=== PATIENT | male | born 1940 | race Caucasian/White ===

== ENCOUNTER → 2017-01-09 | Outpatient (REF) | payer MEDICARE, OTHER ==
[~2017-01-09] MED LIST: /DEXA4TA PO; /HCTZ25TA PO; ACET50TA PO; CLIN300C PO; IBUP80TA PO; SIMV; SIMV5TAB4 PO; TIOTROPIUM INH; hydrochlorothiazide OR; simvastatin OR; spiriva INH
[2017-01-09 18:30] LABS: INR 1.1
== END ==
LOC: M LAB REF 16:44
PROVIDERS: ATTEND Internal Medicine
DX: Z01.818 Encounter for other preprocedural examination (principal)

== ENCOUNTER → 2017-01-20 | Outpatient (CLI) | payer OTHER, BC, MEDICAID ==
--- NOTE | 2017-01-22 17:26 | SLEEPCENT ---
DATE OF PROCEDURE: 01/20/2017 ORDERED BY: Ladi Dixon Nocturnal polysomnography was performed due to concern for the obstructive sleep apnea syndrome in this patient with a history of excessive somnolence and nonrestorative sleep. 6 hours and 47 minutes of data were reviewed. There was 266 minutes of sleep identified. Sleep latency was somewhat prolonged at 45 minutes. Rapid eye movement (REM) latency was normal at 70 minutes. Sleep architecture showed fragmentation but there were three REM periods appreciated. The overall sleep efficiency was 66.1%. Patient's EKG showed a sinus rhythm with an average heart rate of 60 beats per minute. EEG showed reasonably normal wave forms for wake and sleep. No focal events were identified. There were 119 respiratory events identified of 10 seconds in duration or greater for an apnea-hypopnea index of 26.8. The events were primarily obstructive, not exclusive to sleep stage or body posture. Arousals from respiratory events occurred 13.3 times per hour. Oxygen desaturations were seen in the 80's. Some limb activity was noted as well, three trains of 30 events were seen. Limb movement arousal index was 9.7. IMPRESSION: 1. Moderate obstructive sleep apnea syndrome (G47.33). Apnea-hypopnea index 26.8. 2. Periodic limb movement disorder (G47.61). Limb movement arousal index 9.7. RECOMMENDATIONS: Patient should be encouraged to return to the sleep disorder center for pressure therapy. In the interim, alcohol and sedative avoidance should be practiced, and caution exercised during the operation of motor vehicles. Pending response to pressure therapy interventions to reduce the frequency of arousal from limb activity may also help the quality of sleep.
== END ==
LOC: M SLEEP 20:00
PROVIDERS: ATTEND Nurse Practitioner Adult Health
DX: G47.30 Sleep apnea, unspecified (principal)

== ENCOUNTER → 2017-01-27 | Outpatient (CLI) | payer OTHER, MEDICARE, MEDICAID ==
--- NOTE | 2017-01-28 10:00 | SLEEPCENT ---
DATE OF PROCEDURE: 01/27/2017 REQUESTING PROVIDER: Ladi Dixon NP INTERPRETATION: Nocturnal polysomnography was performed for the titration of pressure therapy in this patient with obstructive sleep apnea syndrome, apnea-hypopnea index of 26. For testing, the patient was fit with a ResMed Air Touch F20 full face mask of medium size, 4 cm of water pressure were applied to the circuit and the lights were extinguished. 7 hours and 12 minutes of data were reviewed. There were 271 minutes of sleep identified. Sleep latency was prolonged at 72 minutes. Rapid eye movement (REM) latency was short at 57 minutes. Sleep architecture improved with optimal pressure therapy. There was a period of wake after 3:30 a.m., resulting in reduced sleep efficiency of 63%. REM time, however, was preserved. The patient's electrocardiogram (EKG) showed a sinus rhythm with an average heart rate of 56 beats per minute. Electroencephalogram (EEG) showed normal waveforms for awake and sleep. Persistence of respiratory events prompted an increase in continuous positive airway pressure (CPAP) pressure. Occurrence of snoring prompted further increases. Best sleep was seen on CPAP pressure of +9. Some minor central events were seen at this pressure, however, they were not associated with significant oxygen desaturation. Limb activity seen on the patient's diagnostic study persisted, albeit less so after optimal pressure therapy had been applied. The limb movement arousal index was 8.2. IMPRESSION: 1. Obstructive sleep apnea syndrome (G47.33). 2. Mild periodic limb movement disorder (G47.61). RECOMMENDATIONS: Nightly use of pressure therapy at 9 cm of water should be sufficient to address the patient's respiratory events. If sleep symptoms persist, interventions to reduce the frequency of arousals from limb activity may also be helpful.
== END ==
LOC: M SLEEP 19:57
PROVIDERS: ATTEND Nurse Practitioner Adult Health
DX: G47.33 Obstructive sleep apnea (adult) (pediatric) (principal)

== ENCOUNTER → 2017-11-28 | Outpatient (REF) | payer OTHER, MEDICARE, MEDICAID ==
[2017-11-28 18:31] LABS: VITAMIN B12 LEVEL 940 PG/ML (247-911)
== END ==
LOC: M LAB REF 16:49
DX: R20.8 Other disturbances of skin sensation (principal); Z72.51 High risk heterosexual behavior

== ENCOUNTER → 2021-01-19 | Outpatient (REF) | payer MEDICARE, MEDICAID ==
[~2021-01-19] MED LIST changes: -/DEXA4TA PO; -/HCTZ25TA PO; -ACET50TA PO; +DEXA1TAB8 PO; +HYDR-3644 PO; +MAPA500T17 PO
[2021-01-19 17:47] LABS: BACTERIA, URINE AUTO NEGATIVE (NEGATIVE); RBC, URINE AUTO 3 /HPF (0-3); SQUAMOUS EPITHELIAL CELL UR AU 1 /HPF (0-6); WBC, URINE AUTO 0 /HPF (0-3)
== END ==
LOC: M LAB REF 16:20
PROVIDERS: ATTEND Nurse Practitioner Adult Health
DX: R31.9 Hematuria, unspecified (principal)

== ENCOUNTER → 2021-04-23 | Outpatient (REF) | payer MEDICARE, MEDICAID ==
[2021-04-23 13:38] LABS: APPEARANCE, URINE CLEAR (CLEAR); BACTERIA, URINE AUTO NEGATIVE (NEGATIVE); BILIRUBIN, URINE AUTO NEGATIVE (NEGATIVE); BLOOD, URINE BLOOD 2+ (NEGATIVE); COLOR, URINE YELLOW (YELLOW); GLUCOSE, URINE (UA) AUTO NEGATIVE (NEGATIVE); KETONE, URINE AUTO NEGATIVE (NEGATIVE); LEUKOCYTE ESTERASE, URINE AUTO NEGATIVE (NEGATIVE); MUCUS, URINE SMALL (NEGATIVE); NITRITE, URINE AUTO NEGATIVE (NEGATIVE); PROTEIN, URINE AUTO NEGATIVE (NEGATIVE); RBC, URINE AUTO 10 /HPF (0-3); SPECIFIC GRAVITY URINE AUTO 1.012 (1.002-1.035); SQUAMOUS EPITHELIAL CELL UR AU 0 /HPF (0-6); UROBILINOGEN, URINE AUTO 0.2 mg/dL (0.0-2.0); WBC, URINE AUTO 0 /HPF (0-3)
== END ==
LOC: M SMT 13:10
PROVIDERS: ATTEND Nurse Practitioner Women's Health
DX: R31.21 Asymptomatic microscopic hematuria (principal)
CPT/HCPCS: 81001; 87086; G0463

== ENCOUNTER → 2021-07-26 | Outpatient (REF) | payer MEDICARE, MEDICAID ==
[2021-07-26 17:22] LABS: APPEARANCE, URINE CLEAR (CLEAR); BACTERIA, URINE AUTO NEGATIVE (NEGATIVE); BILIRUBIN, URINE AUTO NEGATIVE (NEGATIVE); BLOOD, URINE BLOOD 2+ (NEGATIVE); COLOR, URINE YELLOW (YELLOW); GLUCOSE, URINE (UA) AUTO NEGATIVE (NEGATIVE); KETONE, URINE AUTO NEGATIVE (NEGATIVE); LEUKOCYTE ESTERASE, URINE AUTO NEGATIVE (NEGATIVE); NITRITE, URINE AUTO NEGATIVE (NEGATIVE); PROTEIN, URINE AUTO NEGATIVE (NEGATIVE); RBC, URINE AUTO 12 /HPF (0-3); SPECIFIC GRAVITY URINE AUTO 1.012 (1.002-1.035); SQUAMOUS EPITHELIAL CELL UR AU 1 /HPF (0-6); UROBILINOGEN, URINE AUTO 0.2 mg/dL (0.0-2.0); WBC, URINE AUTO 0 /HPF (0-3)
== END ==
LOC: M SMT 16:41
PROVIDERS: ATTEND Physician Assistant
DX: R31.21 Asymptomatic microscopic hematuria (principal)

== ENCOUNTER 2021-10-16 09:34 | Observation (INO) | payer MEDICARE, MEDICAID ==
[~2021-10-16] VITALS: Ht 180.3 cm; Wt 127.4 kg
[2021-10-16] VITALS (8 sets, daily range): BP systolic 159–162; BP diastolic 80–92; O2SAT 92–94
[2021-10-16] MEDS ORDERED: dexameTHASONE 4 MG/ML 1ML VIAL (J1100 PER 1MG) IV ONE (09:55)
[2021-10-16] MEDS ORDERED: LOSA50TA28 PO (09:57)
[2021-10-16] MEDS ORDERED: ROSU10TA6 PO (09:57)
[2021-10-16] MEDS ORDERED: BUPR150T12 PO (09:57)
[2021-10-16] MEDS ORDERED: PANT40TA29 PO (09:57)
[2021-10-16] MEDS ORDERED: HYDR-3490 PO (09:57)
[2021-10-16] MEDS: COMBIVENT RESPIMAT 100-20MCG INHALER 4GM INH SCH ×3 (10:10→10:53)
[2021-10-16 10:23] LABS: BASO % 0.1 % (0.0-1.0); EOS % 0.3 % (0.0-3.0); HEMATOCRIT 47.9 % (42.0-52.0); HEMOGLOBIN 15.8 g/dl (13.5-17.5); LYMPH # 1.1 10^3/uL (1.5-5.0); MEAN CORPUSCULAR HEMOGLOBIN 32.2 pg (27.0-33.0); MEAN CORPUSCULAR VOLUME 97.8 fl (80.0-96.0); MONO # 0.7 10^3/uL (0.0-0.8); MONO % 8.9 % (2.0-8.0); NEUTROPHILS # 5.7 10^3/uL (1.5-8.5); NEUTROPHILS % 75.3 % (36.0-66.0); PLATELET COUNT, AUTOMATED 134 10^3/uL (150-450); WHITE BLOOD COUNT 7.6 10^3/uL (4.0-10.0)
[2021-10-16 10:28] LABS: ABG BASE EXCESS 1.5 (-2.0-2.0); ABG HCO3 26.4 MEQ/L (22.0-26.0); ABG O2 SATURATION 94.2 % (95.0-99.0); ABG PARTIAL PRESSURE CO2 42.7 mmHg (35.0-45.0); ABG PARTIAL PRESSURE O2 68.8 mmHg (75.0-100.0); ABG STANDARD HCO3 25.7 MEQ/L (22.0-26.0); ABG TOTAL CO2 27.7 MEQ/L (23.0-31.0); ABG pH (ARTERIAL) 7.409 UNITS (7.350-7.450)
[2021-10-16 10:39] LABS: PARTIAL THROMBOPLASTIN TIME 31.5 SECONDS (25.9-37.0); PROTHROMBIN TIME 13.6 SECONDS (12.7-14.5)
[2021-10-16] MEDS ORDERED: AZITHROMYCIN INJ 500 MG, VIAL MATE ADAPTER 1 EACH in NS 250 ML IV ONE (12:20)
[2021-10-16] MEDS ORDERED: cefTRIAXone SOD 1 GM in D5W MINI-BAG PLUS 50 ML IV ONE (12:20)
[2021-10-16 12:40] LABS: ALBUMIN 3.3 GM/DL (3.2-5.2); ALT/SGPT 28 U/L (12-78); BILIRUBIN,DIRECT 0.2 MG/DL (0.0-0.2); BILIRUBIN,TOTAL 0.5 MG/DL (0.2-1.0); BLOOD UREA NITROGEN 16 MG/DL (7-18); C REACTIVE PROTEIN QUANTITATIV 0.62 MG/DL (0.00-0.30); CALCIUM LEVEL 7.7 MG/DL (8.8-10.2); CARBON DIOXIDE LEVEL 27 MEQ/L (21-32); CHLORIDE LEVEL 106 MEQ/L (98-107); CREATININE FOR GFR 1.09 MG/DL (0.70-1.30); FERRITIN 390 NG/ML (26-388); GLOMERULAR FILTRATION RATE > 60.0 (>35); GLUCOSE, FASTING 110 MG/DL (70-100); LDH LACTATE DEHYDROGENASE 236 U/L (87-241); LIPASE 174 U/L (73-393); MAGNESIUM LEVEL 1.8 MG/DL (1.8-2.4); NT-PRO BNP 99 PG/ML (<450); POTASSIUM SERUM 4.3 MEQ/L (3.5-5.1); SODIUM LEVEL 135 MEQ/L (136-145)
[2021-10-16] MEDS ORDERED: VITMTA PO (13:51)
[2021-10-16] MEDS ORDERED: SPIR1CAP INH (13:51)
[2021-10-16] MEDS ORDERED: ASPI81TA26 PO (13:51)
[2021-10-16] MEDS ORDERED: VENTAER INH (13:51)
[2021-10-16] MEDS ORDERED: FLUT1BLS2 INH (13:51)
[2021-10-16] MEDS ORDERED: ASPI-161 PO (13:51)
[2021-10-16] MEDS ORDERED: HOME MED LIST COMPLETE! XX SCH (13:55)
[2021-10-16] MEDS ORDERED: ACETAMINOPHEN TAB 650MG DOSE (2X325MG) PO PRN (14:00)
[2021-10-16] MEDS ORDERED: REMDESIVIR 200 MG in NS 250 ML IV ONE (18:00)
[2021-10-16] MEDS ORDERED: SODIUM CHLORIDE 0.9% INJ 10 ML SYR IV ONE (20:00)
[2021-10-16] MEDS ORDERED: COMBIVENT RESPIMAT 100-20MCG INHALER 4GM INH PRN (21:50)
[2021-10-17] VITALS (16 sets, daily range): BP systolic 120–142; BP diastolic 60–75; O2SAT 92–97
[2021-10-17] MEDS ORDERED: CHLORASEPTIC SPRAY MT PRN (05:30)
[2021-10-17] MEDS ORDERED: CEPACOL LOZENGE PO PRN (05:30)
[2021-10-17 06:13] LABS: HEMATOCRIT 44.1 % (42.0-52.0); HEMOGLOBIN 14.6 g/dl (13.5-17.5); MEAN CORPUSCULAR HEMOGLOBIN 32.2 pg (27.0-33.0); MEAN CORPUSCULAR HGB CONC 33.1 g/dl (32.0-36.5); MEAN CORPUSCULAR VOLUME 97.1 fl (80.0-96.0); PLATELET COUNT, AUTOMATED 120 10^3/uL (150-450); RED BLOOD COUNT 4.54 10^6/uL (4.30-6.10); WHITE BLOOD COUNT 5.2 10^3/uL (4.0-10.0)
[2021-10-17 06:43] LABS: ALT/SGPT 26 U/L (12-78); BILIRUBIN,DIRECT 0.1 MG/DL (0.0-0.2); BILIRUBIN,TOTAL 0.3 MG/DL (0.2-1.0); BLOOD UREA NITROGEN 15 MG/DL (7-18); CALCIUM LEVEL 8.5 MG/DL (8.8-10.2); CARBON DIOXIDE LEVEL 28 MEQ/L (21-32); CHLORIDE LEVEL 109 MEQ/L (98-107); GLOMERULAR FILTRATION RATE > 60.0 (>35); GLUCOSE, FASTING 104 MG/DL (70-100); POTASSIUM SERUM 4.1 MEQ/L (3.5-5.1); SODIUM LEVEL 140 MEQ/L (136-145); TOTAL PROTEIN 7.1 GM/DL (6.4-8.2)
[2021-10-17] MEDS: TIOTROPIUM INHALER/CAPSULE (SPIRIVA) INH SCH (07:49)
[2021-10-17] MEDS: ALBUTEROL 90 MCG/ACT 8GM HFA INHALER INH SCH (07:49)
[2021-10-17] MEDS: PANTOPRAZOLE 40MG TAB (PROTONIX) PO SCH (09:32)
[2021-10-17] MEDS: ASPIRIN 81MG ENTERIC TABLET PO SCH (09:32)
[2021-10-17] MEDS: dexameTHASONE 4 MG/ML 1ML VIAL (J1100 PER 1MG) PO SCH (09:33)
[2021-10-17] MEDS: ROSUVASTATIN 10 MG TAB (CRESTOR) PO SCH (09:33)
[2021-10-17] MEDS: LOSARTAN 50MG TABLET PO SCH (09:33)
[2021-10-17] MEDS: MULTIVITAMINS/MINERALS THERAP 1 TAB PO SCH (09:34)
[2021-10-17] MEDS: buPROPion **XL** TABLET 150MG (WELLBUTRIN XL) PO SCH (09:34)
[2021-10-17] MEDS: ENOXAPARIN 40MG/0.4ML SYRINGE (J1650 PER 10MG) SC SCH (09:34)
[2021-10-17] MEDS ORDERED: REMDESIVIR 100 MG in NS 250 ML IV SCH (18:00)
[2021-10-17] MEDS ORDERED: SODIUM CHLORIDE 0.9% INJ 10 ML SYR IV SCH (19:00)
[2021-10-18 02:39] VITALS: O2SAT 92
[2021-10-18 06:02] VITALS: O2SAT 94
[2021-10-18 06:05] VITALS: BP 136/62
[2021-10-18 08:00] VITALS: O2SAT 93
[2021-10-18] MEDS: TIOTROPIUM INHALER/CAPSULE (SPIRIVA) INH SCH (08:19)
[2021-10-18] MEDS: ALBUTEROL 90 MCG/ACT 8GM HFA INHALER INH SCH (08:20)
[2021-10-18] MEDS: ROSUVASTATIN 10 MG TAB (CRESTOR) PO SCH (09:13)
[2021-10-18] MEDS: PANTOPRAZOLE 40MG TAB (PROTONIX) PO SCH (09:13)
[2021-10-18] MEDS: MULTIVITAMINS/MINERALS THERAP 1 TAB PO SCH (09:13)
[2021-10-18] MEDS: dexameTHASONE 4 MG/ML 1ML VIAL (J1100 PER 1MG) PO SCH (09:13)
[2021-10-18] MEDS: buPROPion **XL** TABLET 150MG (WELLBUTRIN XL) PO SCH (09:13)
[2021-10-18] MEDS: ASPIRIN 81MG ENTERIC TABLET PO SCH (09:13)
[2021-10-18] MEDS: ENOXAPARIN 40MG/0.4ML SYRINGE (J1650 PER 10MG) SC SCH (09:14)
[2021-10-18] MEDS ORDERED: PRED20TA PO (09:15)
[2021-10-18 09:16] VITALS: BP 139/75
[2021-10-18] MEDS: LOSARTAN 50MG TABLET PO SCH (09:16)
[2021-10-18] MEDS ORDERED: AMOX875T2 PO (10:45)
[2021-10-18] MEDS ORDERED: REMDESIVIR 100 MG in NS 250 ML IV ONE (11:00)
[2021-10-18 12:00] VITALS: BP 150/72
[2021-10-18] MEDS ORDERED: SODIUM CHLORIDE 0.9% INJ 10 ML SYR IV ONE (12:00)
== END 2021-10-18 14:35 | disposition home or self-care (01) ==
LOC: M ED 09:34 → M ED INP 14:00 → ENRESERV 14:26 → M 4MAIN 16:40
PROVIDERS: ADMIT Internal Medicine; ATTEND Internal Medicine
DX: U07.1 COVID-19 (principal); R09.02 Hypoxemia; J44.9 Chronic obstructive pulmonary disease, unspecified; B95.4 Other streptococcus as the cause of diseases classified elsewhere; I10 Essential (primary) hypertension; E78.00 Pure hypercholesterolemia, unspecified; K21.9 Gastro-esophageal reflux disease without esophagitis; K57.90 Diverticulosis of intestine, part unspecified, without perforation or abscess without bleeding; Z79.51 Long term (current) use of inhaled steroids; Z79.52 Long term (current) use of systemic steroids; Z79.899 Other long term (current) drug therapy
CPT/HCPCS: 36415; 36600; 71045; 80053; 82248; 82728; 82803; 83605; 83615; 83690; 83735; 83880; 84145; 84484; 85025; 85027; 85384; 85610; 85730; 86140; 87040; 87486; 87581; 87633; 87798; 87880; 93005; 94640; 96365; 96366; 96367; 96372; 96375; 97116; 97161; 97165; 97530; 99285; G0378; J0248; J0456; J0696; J1100; J1650

== ENCOUNTER → 2021-11-07 | Outpatient (CLI) | payer MEDICARE, MEDICAID ==
[~2021-11-07] MED LIST changes: +AMOX875T2 PO; +ASPI-161 PO; +ASPI81TA26 PO; +BUPR150T12 PO; +FLUT1BLS2 INH; +HYDR-3490 PO; +LOSA50TA28 PO; +PANT40TA29 PO; +PRED20TA PO; +ROSU10TA6 PO; +SPIR1CAP INH; +VENTAER INH; +VITMTA PO
== END ==
LOC: M RAD 10:06
PROVIDERS: ATTEND Physician Assistant
DX: R22.1 Localized swelling, mass and lump, neck (principal)

== ENCOUNTER → 2021-11-09 | Outpatient (CLI) | payer MEDICARE, OTHER | LOC: M RAD 09:18 | PROVIDERS: ATTEND Otolaryngology | DX: J32.4 Chronic pansinusitis (principal) ==

== ENCOUNTER → 2021-12-12 | Outpatient (CLI) | payer MEDICARE | LOC: M WUC 09:41 | PROVIDERS: ATTEND Nurse Practitioner Adult Health | DX: Z01.811 Encounter for preprocedural respiratory examination (principal); J98.9 Respiratory disorder, unspecified ==

== ENCOUNTER → 2021-12-19 | Outpatient (CLI) | payer MEDICARE | LOC: M EKG 09:10 | PROVIDERS: ATTEND Nurse Practitioner Adult Health | DX: R00.1 Bradycardia, unspecified (principal) ==

== ENCOUNTER 2022-02-19 14:23 | Emergency (ER) | payer MEDICARE ==
[~2022-02-19] VITALS: Ht 180.3 cm; Wt 126.5 kg
[~2022-02-19 14:23] MED LIST changes: +CARV6.25 PO; +ECOT81TA5 PO; +LOSA25TA13 PO; +PRAV20TA2 PO; +SPIR-10 PO; +TORS10TA3 PO
[2022-02-19] MEDS ORDERED: PANTOPRAZOLE 40MG VIAL IV ONE (15:05)
[2022-02-19 15:16] LABS: BASO # 0.1 10^3/uL (0.0-0.2); BASO % 0.4 % (0.0-1.0); EOS # 0.1 10^3/uL (0.0-0.5); EOS % 0.5 % (0.0-3.0); HEMATOCRIT 49.7 % (42.0-52.0); HEMOGLOBIN 16.6 g/dl (13.5-17.5); LYMPH # 1.3 10^3/uL (1.5-5.0); LYMPH % 9.7 % (24.0-44.0); MEAN CORPUSCULAR HEMOGLOBIN 32.5 pg (27.0-33.0); MEAN CORPUSCULAR HGB CONC 33.4 g/dl (32.0-36.5); MEAN CORPUSCULAR VOLUME 97.5 fl (80.0-96.0); MONO # 1.1 10^3/uL (0.0-0.8); MONO % 8.4 % (2.0-8.0); NEUTROPHILS # 10.9 10^3/uL (1.5-8.5); NEUTROPHILS % 80.4 % (36.0-66.0); PLATELET COUNT, AUTOMATED 219 10^3/uL (150-450); WHITE BLOOD COUNT 13.6 10^3/uL (4.0-10.0)
[2022-02-19 15:55] LABS: ALBUMIN 3.8 GM/DL (3.2-5.2); BILIRUBIN,DIRECT 0.2 MG/DL (0.0-0.2); BILIRUBIN,TOTAL 0.8 MG/DL (0.2-1.0); CALCIUM LEVEL 9.2 MG/DL (8.8-10.2); CREATININE FOR GFR 1.32 MG/DL (0.70-1.30); GLOMERULAR FILTRATION RATE 55.6 (>35); TOTAL PROTEIN 7.8 GM/DL (6.4-8.2)
[2022-02-19] MEDS ORDERED: NITROGLYCERIN 0.4 MG SUBL TABLET SL STA (16:04)
[2022-02-19 16:10] VITALS: BP 150/90
[2022-02-19 16:10] LABS: CK-MB VALUE MASS 1.1 NG/ML (<3.6); MB/CK RELATIVE INDEX 1.39 (< OR =4)
[2022-02-19] MEDS ORDERED: ISOVUE-370 76% 100ML VIAL As Ordered ONE (16:25)
[2022-02-19 16:58] LABS: RSV AMPLIFICATION NEGATIVE (NEGATIVE)
[2022-02-19] MEDS ORDERED: MORPHINE 4 MG/ML 1ML VIAL/SYRINGE IV PRN (19:30)
[2022-02-19] MEDS ORDERED: ONDANSETRON 4MG 2ML VIAL IV ONE (19:30)
[2022-02-19 19:39] VITALS: BP 180/96
== END 2022-02-19 19:57 | disposition short-term general hospital (02) ==
LOC: M ED 14:23
DX: I71.30 Abdominal aortic aneurysm, ruptured, unspecified (principal); I10 Essential (primary) hypertension; J44.9 Chronic obstructive pulmonary disease, unspecified; Z95.0 Presence of cardiac pacemaker; F10.10 Alcohol abuse, uncomplicated; F17.200 Nicotine dependence, unspecified, uncomplicated; Z86.79 Personal history of other diseases of the circulatory system; Z79.82 Long term (current) use of aspirin; Z79.811 Long term (current) use of aromatase inhibitors; Z79.899 Other long term (current) drug therapy
CPT/HCPCS: 71045; 71275; 74177; 80048; 80076; 82550; 82553; 83690; 84484; 85025; 87631; 93005; 93041; 94760; 96374; 96375; 99285; C9113; J2270; J2405; Q9967

== ENCOUNTER 2022-03-04 16:15 | Inpatient (IN) | payer MEDICARE ==
[~2022-03-04] VITALS: Ht 180.3 cm; Wt 126.5 kg
[2022-03-04] MEDS ORDERED: ALBUTEROL SULFATE 2.5 MG/0.5 ML INH NEB SOLN INH ONE (16:45)
[2022-03-04] MEDS ORDERED: methylPREDNISolone 125MG 2ML VIAL IV ONE (16:45)
[2022-03-04] MEDS ORDERED: IPRATROPIUM 0.5MG/ALBUTEROL 2.5MG INH SOL UD 3ML (DUONEB) NEB ONE (16:45)
[2022-03-04 17:07] LABS: ABG BASE EXCESS 2.8 (-2.0-2.0); ABG HCO3 26.3 MEQ/L (22.0-26.0); ABG O2 SATURATION 95.9 % (95.0-99.0); ABG PARTIAL PRESSURE O2 78.1 mmHg (75.0-100.0); ABG TOTAL CO2 27.4 MEQ/L (23.0-31.0); ABG pH (ARTERIAL) 7.481 UNITS (7.350-7.450)
[2022-03-04] MEDS ORDERED: ISOVUE-370 76% 100ML VIAL As Ordered ONE (18:02)
[2022-03-04 18:18] LABS: BASO # 0.1 10^3/uL (0.0-0.2); BASO % 0.5 % (0.0-1.0); EOS # 0.3 10^3/uL (0.0-0.5); EOS % 2.2 % (0.0-3.0); HEMATOCRIT 32.5 % (42.0-52.0); HEMOGLOBIN 10.6 g/dl (13.5-17.5); LYMPH # 1.5 10^3/uL (1.5-5.0); LYMPH % 11.9 % (24.0-44.0); MEAN CORPUSCULAR HEMOGLOBIN 32.4 pg (27.0-33.0); MEAN CORPUSCULAR HGB CONC 32.6 g/dl (32.0-36.5); MEAN CORPUSCULAR VOLUME 99.4 fl (80.0-96.0); MONO # 1.2 10^3/uL (0.0-0.8); MONO % 10.2 % (2.0-8.0); NEUTROPHILS % 73.7 % (36.0-66.0); PLATELET COUNT, AUTOMATED 418 10^3/uL (150-450); RED BLOOD COUNT 3.27 10^6/uL (4.30-6.10); WHITE BLOOD COUNT 12.2 10^3/uL (4.0-10.0)
[2022-03-04 18:31] LABS: ALBUMIN 2.7 GM/DL (3.2-5.2); BILIRUBIN,DIRECT 0.2 MG/DL (0.0-0.2); BILIRUBIN,TOTAL 0.9 MG/DL (0.2-1.0); CALCIUM LEVEL 8.1 MG/DL (8.8-10.2); CREATININE FOR GFR 1.32 MG/DL (0.70-1.30); GLOMERULAR FILTRATION RATE 55.6 (>35); POTASSIUM SERUM 4.7 MEQ/L (3.5-5.1); THYROID STIMULATING HORMONE 2.84 uIU/ML (0.358-3.740); THYROXINE (T4) 7.3 UG/DL (4.5-12.0); TOTAL PROTEIN 6.3 GM/DL (6.4-8.2)
[2022-03-04] MEDS ORDERED: FUROSEMIDE 20MG/2ML VIAL (J1940) IV ONE (18:50)
[2022-03-04] MEDS ORDERED: CEFEPIME HCL 2 GM in D5W MINI-BAG PLUS 50 ML IV ONE (20:30)
[2022-03-04] MEDS ORDERED: VANCOMYCIN HCL IV ONE (20:30)
[2022-03-04] MEDS ORDERED: FLUID PLACE HOLDER IV ONE (20:30)
[2022-03-04] MEDS ORDERED: VITMTA PO (21:11)
[2022-03-04] MEDS ORDERED: CARV6.25 PO (21:11)
[2022-03-04] MEDS ORDERED: K-TA10TA PO (21:13)
[2022-03-04] MEDS ORDERED: CLOP75TA2 PO (21:13)
[2022-03-04] MEDS ORDERED: HOME MED LIST COMPLETE! XX SCH (21:15)
[2022-03-04] MEDS ORDERED: XARE20TA PO (21:17)
[2022-03-04] MEDS ORDERED: VANCOMYCIN HCL 1,000 MG, VIAL MATE ADAPTER 1 EACH in NS 250 ML IV ONE ×2 (22:00→23:00)
[2022-03-05] MEDS ORDERED: ALBUTEROL SULFATE 2.5 MG/0.5 ML INH NEB SOLN NEB PRN
[2022-03-05] MEDS: methylPREDNISolone 40MG 1ML VIAL IV SCH ×3 (01:10→20:58)
[2022-03-05] MEDS: CARVedilol 6.25 MG TAB PO SCH ×3 (01:15→20:59)
[2022-03-05 02:55] VITALS: BP 142/72
[2022-03-05] MEDS: IPRATROPIUM 0.5MG/ALBUTEROL 2.5MG INH SOL UD 3ML (DUONEB) NEB SCH ×4 (03:49→20:00)
[2022-03-05 07:08] LABS: HEMATOCRIT 30.7 % (42.0-52.0); HEMOGLOBIN 9.8 g/dl (13.5-17.5); MEAN CORPUSCULAR HEMOGLOBIN 31.8 pg (27.0-33.0); MEAN CORPUSCULAR HGB CONC 31.9 g/dl (32.0-36.5); MEAN CORPUSCULAR VOLUME 99.7 fl (80.0-96.0); PLATELET COUNT, AUTOMATED 396 10^3/uL (150-450); RED BLOOD COUNT 3.08 10^6/uL (4.30-6.10); WHITE BLOOD COUNT 13.4 10^3/uL (4.0-10.0)
[2022-03-05 07:33] LABS: CALCIUM LEVEL 8.2 MG/DL (8.8-10.2); CREATININE FOR GFR 1.34 MG/DL (0.70-1.30); GLOMERULAR FILTRATION RATE 54.6 (>35); MAGNESIUM LEVEL 2.1 MG/DL (1.8-2.4); POTASSIUM SERUM 4.6 MEQ/L (3.5-5.1)
[2022-03-05] MEDS: SPIRONOLACTONE 25 MG TAB PO SCH (07:34)
[2022-03-05] MEDS: PRAVASTATIN 20 MG TAB PO SCH (07:34)
[2022-03-05] MEDS: CLOPIDOGREL 75 MG TAB PO SCH (07:35)
[2022-03-05] MEDS: TORSEMIDE 10 MG TABLET PO SCH (07:35)
[2022-03-05] MEDS: CEFEPIME HCL 2 GM in D5W MINI-BAG PLUS 50 ML IV SCH ×2 (07:35→17:54)
[2022-03-05] MEDS: PANTOPRAZOLE 40MG TAB (PROTONIX) PO SCH (07:35)
[2022-03-05 08:00] VITALS: BP 141/76
[2022-03-05] MEDS: TIOTROPIUM INHALER/CAPSULE (SPIRIVA) INH SCH (08:43)
[2022-03-05] MEDS: guaiFENesin 200 MG TAB PO SCH ×2 (09:00→20:58)
[2022-03-05] MEDS ORDERED: LOSARTAN 25 MG TAB PO SCH (09:00)
[2022-03-05] MEDS ORDERED: VANCOMYCIN HCL 1,000 MG, VIAL MATE ADAPTER 1 EACH in D5W 250 ML IV SCH (10:00)
[2022-03-05 12:00] VITALS: BP 115/55
[2022-03-05 12:07] LABS: APPEARANCE, BODY FLUID CLOUDY (CLEAR); PLEURAL FL COLOR ORANGE (COLORLESS); SOURCE, BODY FLUID PLEURAL
[2022-03-05 12:46] LABS: SOURCE, BODY FLUID pH PLEURAL
[2022-03-05 13:09] LABS: CHOLESTEROL, BODY FLUID < 50 MG/DL (NOT ESTABLISHED); LDH, BODY FLUID 187 U/L (NOT ESTABLISHED); SOURCE, BODY FLUID ALBUMIN PLEURAL; SOURCE, BODY FLUID CHOL PLEURAL; SOURCE, BODY FLUID GLUCOSE PLEURAL; SOURCE, BODY FLUID LDH PLEURAL; SOURCE, BODY FLUID TOT PROTEIN PLEURAL; SOURCE, BODY FLUID TRIG PLEURAL; TOTAL PROTEIN, BODY FLUID 2.5 G/DL (NOT ESTABLISHED); TRIGLYCERIDE, BODY FLUID 16 MG/DL (NOT ESTABLISHED)
[2022-03-05 15:54] VITALS: BP 140/67
[2022-03-05 19:20] VITALS: BP 121/58
[2022-03-06 00:25] VITALS: BP 139/75
[2022-03-06] MEDS: CEFEPIME HCL 2 GM in D5W MINI-BAG PLUS 50 ML IV SCH ×2 (00:40→08:42)
[2022-03-06] MEDS: IPRATROPIUM 0.5MG/ALBUTEROL 2.5MG INH SOL UD 3ML (DUONEB) NEB SCH ×3 (02:00→13:04)
[2022-03-06 04:07] VITALS: BP 135/68
[2022-03-06 06:49] LABS: BASO % 0.1 % (0.0-1.0); HEMATOCRIT 33.6 % (42.0-52.0); HEMOGLOBIN 10.3 g/dl (13.5-17.5); LYMPH # 0.8 10^3/uL (1.5-5.0); LYMPH % 3.8 % (24.0-44.0); MEAN CORPUSCULAR HEMOGLOBIN 31.5 pg (27.0-33.0); MEAN CORPUSCULAR HGB CONC 30.7 g/dl (32.0-36.5); MEAN CORPUSCULAR VOLUME 102.8 fl (80.0-96.0); MONO # 1.2 10^3/uL (0.0-0.8); MONO % 6.1 % (2.0-8.0); PLATELET COUNT, AUTOMATED 411 10^3/uL (150-450); RED BLOOD COUNT 3.27 10^6/uL (4.30-6.10); WHITE BLOOD COUNT 20.2 10^3/uL (4.0-10.0)
[2022-03-06] MEDS: TIOTROPIUM INHALER/CAPSULE (SPIRIVA) INH SCH (07:12)
[2022-03-06 07:29] LABS: BLOOD UREA NITROGEN 30 MG/DL (7-18); CALCIUM LEVEL 8.6 MG/DL (8.8-10.2); CARBON DIOXIDE LEVEL 29 MEQ/L (21-32); CHLORIDE LEVEL 107 MEQ/L (98-107); CREATININE FOR GFR 1.18 MG/DL (0.70-1.30); GLOMERULAR FILTRATION RATE > 60.0 (>35); GLUCOSE, FASTING 115 MG/DL (70-100); POTASSIUM SERUM 4.8 MEQ/L (3.5-5.1); SODIUM LEVEL 139 MEQ/L (136-145)
[2022-03-06 08:07] VITALS: BP 136/71
[2022-03-06] MEDS: methylPREDNISolone 40MG 1ML VIAL IV SCH (08:41)
[2022-03-06] MEDS: PANTOPRAZOLE 40MG TAB (PROTONIX) PO SCH (08:42)
[2022-03-06] MEDS: guaiFENesin 200 MG TAB PO SCH (08:42)
[2022-03-06] MEDS: TORSEMIDE 10 MG TABLET PO SCH (08:42)
[2022-03-06] MEDS: CLOPIDOGREL 75 MG TAB PO SCH (08:43)
[2022-03-06] MEDS: PRAVASTATIN 20 MG TAB PO SCH (08:43)
[2022-03-06] MEDS: SPIRONOLACTONE 25 MG TAB PO SCH (08:43)
[2022-03-06 08:44] VITALS: BP 136/71
[2022-03-06] MEDS: CARVedilol 6.25 MG TAB PO SCH (08:44)
[2022-03-06] MEDS ORDERED: FLUBLOK(EGG FREE)(QUAD)INFLUENZA VACC 0.5ML SYRINGE 18YRS & OLDER IM.IMMUN ONE (09:00)
[2022-03-06] MEDS ORDERED: PREVNAR-20 VACCINE 0.5ML SYRINGE IM.IMMUN ONE (09:00)
[2022-03-06 09:51] LABS: C REACTIVE PROTEIN QUANTITATIV 7.87 MG/DL (0.00-0.30)
[2022-03-06 09:51] LABS: C REACTIVE PROTEIN QUANTITATIV 4.04 MG/DL (0.00-0.30)
[2022-03-06 09:51] LABS: C REACTIVE PROTEIN QUANTITATIV 7.82 MG/DL (0.00-0.30)
[2022-03-06] MEDS ORDERED: PRED10TA2 PO (11:43)
[2022-03-06] MEDS ORDERED: LEVO1TAB40 PO (11:43)
[2022-03-06] MEDS ORDERED: ALBU8.5H INH (12:08)
[2022-03-06 12:11] VITALS: BP 118/68
[2022-03-06] MEDS ORDERED: PRED20TA PO (12:21)
[2022-03-06] MEDS ORDERED: LevoFLOXacin 750 MG TABLET PO SCH (14:00)
[2022-03-07] MEDS ORDERED: predniSONE 20 MG TAB PO SCH (09:00)
== END 2022-03-06 14:54 | disposition home health service (06) | DRG 178 ==
LOC: M ED 16:15 → M ED INP 03-05 → ENRESERV 03-05 00:35 → M PCU 03-05 02:54
PROVIDERS: ADMIT Internal Medicine; ATTEND Internal Medicine
PROC: 0W9B3ZZ Drainage of Left Pleural Cavity, Percutaneous Approach (ICD-10-PCS; principal; 2022-03-05 08:30)
DX: J69.0 Pneumonitis due to inhalation of food and vomit (principal); J44.1 Chronic obstructive pulmonary disease with (acute) exacerbation; J90 Pleural effusion, not elsewhere classified; N17.9 Acute kidney failure, unspecified; I31.39 Other pericardial effusion (noninflammatory); I50.32 Chronic diastolic (congestive) heart failure; I13.0 Hypertensive heart and chronic kidney disease with heart failure and stage 1 through stage 4 chronic kidney disease, or unspecified chronic kidney disease; Z95.9 Presence of cardiac and vascular implant and graft, unspecified; N18.2 Chronic kidney disease, stage 2 (mild); Z79.01 Long term (current) use of anticoagulants; Z72.0 Tobacco use; K21.9 Gastro-esophageal reflux disease without esophagitis; D64.9 Anemia, unspecified; Z66 Do not resuscitate; F17.200 Nicotine dependence, unspecified, uncomplicated; Z79.899 Other long term (current) drug therapy

== ENCOUNTER → 2022-04-26 | Outpatient (REF) | payer MEDICARE, MEDICAID ==
[~2022-04-26] MED LIST changes: +ALBU8.5H INH; +CLOP75TA2 PO; +K-TA10TA PO; +LEVO1TAB40 PO; +PRED10TA2 PO; +XARE20TA PO
[2022-04-26 18:01] LABS: CALCIUM LEVEL 8.6 MG/DL (8.3-10.6); CREATININE FOR GFR 1.37 MG/DL (0.70-1.30); GLOMERULAR FILTRATION RATE 53.2 (>35); POTASSIUM SERUM 4.7 MMOL/L (3.5-5.1)
== END ==
LOC: M LAB REF 15:59
PROVIDERS: ATTEND Nurse Practitioner Adult Health
DX: C15.9 Malignant neoplasm of esophagus, unspecified (principal)

== ENCOUNTER → 2022-06-14 | Outpatient (CLI) | payer MEDICARE | LOC: M PLAIMG 13:26 | PROVIDERS: ATTEND Internal Medicine Pulmonary Disease | DX: R91.8 Other nonspecific abnormal finding of lung field (principal) ==

== ENCOUNTER → 2022-07-01 | Outpatient (REF) | payer MEDICARE, MEDICAID | LOC: M LAB REF 11:07 | PROVIDERS: ATTEND Nurse Practitioner Adult Health | DX: I50.32 Chronic diastolic (congestive) heart failure (principal) ==

== ENCOUNTER → 2022-09-20 | Outpatient (CLI) | payer MEDICARE | LOC: M PLAIMG 12:58 | PROVIDERS: ATTEND Internal Medicine Pulmonary Disease | DX: J44.9 Chronic obstructive pulmonary disease, unspecified (principal) ==

== ENCOUNTER → 2022-10-16 | Outpatient (CLI) | payer MEDICARE, MEDICAID | LOC: M PLARAD 09:25 | PROVIDERS: ATTEND Internal Medicine Pulmonary Disease | DX: R91.1 Solitary pulmonary nodule (principal) | CPT/HCPCS: 78815; A9552 ==

== ENCOUNTER → 2023-05-02 | Outpatient (CLI) | payer MEDICARE, MEDICAID ==
[~2023-05-02] MED LIST changes: -K-TA10TA PO; +POTA-164 PO
== END ==
LOC: M RAD 13:12
PROVIDERS: ATTEND Internal Medicine Pulmonary Disease
DX: R91.8 Other nonspecific abnormal finding of lung field (principal)

== ENCOUNTER → 2023-06-18 | Outpatient (CLI) | payer MEDICARE, MEDICAID ==
[2023-06-18 18:02] LABS: BASO % 0.5 % (0.0-1.0); EOS # 0.1 10^3/uL (0.0-0.5); EOS % 1.6 % (0.0-3.0); HEMATOCRIT 44.4 % (42.0-52.0); LYMPH # 1.2 10^3/uL (1.5-5.0); LYMPH % 13.6 % (24.0-44.0); MEAN CORPUSCULAR HEMOGLOBIN 31.1 pg (27.0-33.0); MEAN CORPUSCULAR HGB CONC 31.5 g/dl (32.0-36.5); MEAN CORPUSCULAR VOLUME 98.7 fl (80.0-96.0); MONO # 0.9 10^3/uL (0.0-0.8); MONO % 9.7 % (2.0-8.0); NEUTROPHILS # 6.5 10^3/uL (1.5-8.5); NEUTROPHILS % 73.6 % (36.0-66.0); PLATELET COUNT, AUTOMATED 216 10^3/uL (150-450); WHITE BLOOD COUNT 8.9 10^3/uL (4.0-10.0)
[2023-06-18 18:21] LABS: ALBUMIN 2.9 G/DL (3.2-5.2); ALKALINE PHOSPHATASE 79 U/L (46-116); ALT/SGPT 22 U/L (7.0-40); AST/SGOT 14 U/L (<34); BILIRUBIN,TOTAL 0.5 MG/DL (0.3-1.2); BLOOD UREA NITROGEN 14 MG/DL (9-23); CALCIUM LEVEL 8.3 MG/DL (8.3-10.6); CARBON DIOXIDE LEVEL 33 MMOL/L (20-31); CHLORIDE LEVEL 106 MMOL/L (98-107); CREATININE FOR GFR 1.03 MG/DL (0.70-1.30); GLOMERULAR FILTRATION RATE > 60.0 (>35); GLUCOSE, FASTING 99 MG/DL (74-106); POTASSIUM SERUM 4.8 MMOL/L (3.5-5.1); SODIUM LEVEL 142 MMOL/L (136-145); TOTAL PROTEIN 6.1 G/DL (5.7-8.2)
== END ==
LOC: M PLALAB 16:05
PROVIDERS: ATTEND Internal Medicine Cardiovascular Disease
DX: I11.0 Hypertensive heart disease with heart failure (principal); I50.32 Chronic diastolic (congestive) heart failure; I27.81 Cor pulmonale (chronic); I48.21 Permanent atrial fibrillation

== ENCOUNTER → 2023-08-18 | Outpatient (REF) | payer MEDICARE, MEDICAID ==
[~2023-08-18] MED LIST changes: -ASPI-161 PO; +ASPI-615 PO
== END ==
LOC: M LAB REF 11:54
PROVIDERS: ATTEND Internal Medicine
DX: I50.32 Chronic diastolic (congestive) heart failure (principal)

== ENCOUNTER → 2023-12-01 | Outpatient (REF) | payer MEDICARE, MEDICAID ==
[~2023-12-01] MED LIST changes: -ROSU10TA6 PO; +ROSU10TA61 PO
== END ==
LOC: M LAB REF 16:50
PROVIDERS: ATTEND Internal Medicine
DX: I11.0 Hypertensive heart disease with heart failure (principal); I48.21 Permanent atrial fibrillation; I50.32 Chronic diastolic (congestive) heart failure

== ENCOUNTER → 2024-01-06 | Outpatient (REF) | payer MEDICARE, MEDICAID | LOC: M LAB REF 16:18 | PROVIDERS: ATTEND Internal Medicine | DX: I48.21 Permanent atrial fibrillation (principal); I13.0 Hypertensive heart and chronic kidney disease with heart failure and stage 1 through stage 4 chronic kidney disease, or unspecified chronic kidney disease ==

== ENCOUNTER → 2024-01-22 | Outpatient (CLI) | payer MEDICARE, MEDICAID | LOC: M PLAIMG 09:34 | PROVIDERS: ATTEND Internal Medicine Pulmonary Disease | DX: R91.8 Other nonspecific abnormal finding of lung field (principal) ==

== ENCOUNTER 2024-02-03 12:09 | Outpatient (RCR) | payer MEDICARE, MEDICAID | END 2024-02-16 | LOC: M PT 12:09 | PROVIDERS: ATTEND Internal Medicine | DX: Z46.89 Encounter for fitting and adjustment of other specified devices (principal); I50.33 Acute on chronic diastolic (congestive) heart failure; J44.9 Chronic obstructive pulmonary disease, unspecified ==

== ENCOUNTER → 2024-04-23 | Outpatient (CLI) | payer MEDICARE, MEDICAID | LOC: M PLAIMG 10:17 | PROVIDERS: ATTEND Registered Nurse | DX: I50.32 Chronic diastolic (congestive) heart failure (principal); I27.20 Pulmonary hypertension, unspecified; I36.1 Nonrheumatic tricuspid (valve) insufficiency ==

== ENCOUNTER 2024-06-03 17:10 | Inpatient (IN) | payer MEDICARE, MEDICAID ==
[2024-06-03] MEDS ORDERED: BUDE10.7 INH (17:47)
[2024-06-03] MEDS ORDERED: MAGN400T2 PO (17:47)
[2024-06-03] MEDS ORDERED: HOME MED LIST COMPLETE! XX SCH (17:50)
[2024-06-03 17:51] LABS: BASO % 0.3 % (0.0-1.0); EOS # 0.1 10^3/uL (0.0-0.5); HEMATOCRIT 37.8 % (42.0-52.0); HEMOGLOBIN 11.9 g/dl (13.5-17.5); LYMPH % 17.4 % (24.0-44.0); MEAN CORPUSCULAR HEMOGLOBIN 30.7 pg (27.0-33.0); MEAN CORPUSCULAR HGB CONC 31.5 g/dl (32.0-36.5); MEAN CORPUSCULAR VOLUME 97.7 fl (80.0-96.0); MONO # 0.5 10^3/uL (0.0-0.8); NEUTROPHILS # 4.3 10^3/uL (1.5-8.5); NEUTROPHILS % 71.8 % (36.0-66.0); PLATELET COUNT, AUTOMATED 169 10^3/uL (150-450); RED BLOOD COUNT 3.87 10^6/uL (4.30-6.10)
[2024-06-03 18:03] LABS: INR 2.59; PROTHROMBIN TIME 27.8 SECONDS (12.5-14.5)
[2024-06-03 18:19] LABS: ALBUMIN 2.9 G/DL (3.2-5.2); ALKALINE PHOSPHATASE 87 U/L (40-129); ALT/SGPT 17 U/L (7.0-40); AST/SGOT 22 U/L (<34); BILIRUBIN,DIRECT 0.2 MG/DL (<0.4); BILIRUBIN,TOTAL 0.5 MG/DL (0.3-1.2); BLOOD UREA NITROGEN 24 MG/DL (9-23); CALCIUM LEVEL 7.9 MG/DL (8.3-10.6); CARBON DIOXIDE LEVEL 33 MMOL/L (20-31); CHLORIDE LEVEL 99 MMOL/L (98-107); CK-MB VALUE MASS < 1.0 NG/ML (<3.6); CPK CREATINE PHOSPHOKINASE 59 U/L (46-171); CREATININE FOR GFR 1.28 MG/DL (0.70-1.30); GLOMERULAR FILTRATION RATE 57.1 (>35); GLUCOSE, FASTING 98 MG/DL (74-106); MB/CK RELATIVE INDEX 1.69 (< OR =4); POTASSIUM SERUM 4.4 MMOL/L (3.5-5.1); SODIUM LEVEL 140 MMOL/L (136-145)
[2024-06-03] MEDS ORDERED: ISOVUE-370 76% 100ML VIAL As Ordered ONE (18:29)
[2024-06-03 19:30] LABS: CK-MB VALUE MASS < 1.0 NG/ML (<3.6)
[2024-06-03 19:31] LABS: CPK CREATINE PHOSPHOKINASE 58 U/L (46-171); MB/CK RELATIVE INDEX 1.72 (< OR =4)
[2024-06-03] MEDS ORDERED: ALBUTEROL SULFATE 2.5MG/0.5ML INH NEB SOLN NEB PRN (21:15)
[2024-06-03] MEDS: DOXYCYCLINE HYCLATE 100MG TABLET PO SCH (22:53)
[2024-06-03] MEDS: cefTRIAXone SOD 1 GM in DEXTROSE 5% (D5W) ADV/MINI-BAG 50 ML IV SCH (22:53)
[2024-06-03 23:05] LABS: PROCALCITONIN 0.13 ng/ml
[2024-06-04] MEDS: IPRATROPIUM 0.5MG/ALBUTEROL 2.5MG INH SOL UD 3ML (DUONEB) NEB SCH (00:27)
[2024-06-04 00:40] VITALS: BP 128/69; TEMP 97.3; O2SAT 94
[2024-06-04 04:32] VITALS: BP 129/69; TEMP 97.5; O2SAT 95
[2024-06-04] MEDS: HEPARIN SOD (PORCINE) 5000UNITS/ML 1ML VIAL/SYRINGE SC SCH (06:00)
[2024-06-04 06:36] LABS: VENOUS BASE EXCESS 0.7 (-2.0-2.0); VENOUS HCO3 27.5 MMOL/L (23.0-27.0); VENOUS O2 SATURATION 99.2 % (60.0-80.0); VENOUS PARTIAL PRESSURE CO2 53.4 mmHg (38.0-50.0); VENOUS PARTIAL PRESSURE O2 155.5 mmHg (30.0-50.0); VENOUS STANDARD HCO3 25.2 MMOL/L; VENOUS TOTAL CO2 29.2 MMOL/L (24.0-28.0)
[2024-06-04 06:48] LABS: HEMATOCRIT 37.7 % (42.0-52.0); MEAN CORPUSCULAR HEMOGLOBIN 30.9 pg (27.0-33.0); MEAN CORPUSCULAR HGB CONC 31.8 g/dl (32.0-36.5); MEAN CORPUSCULAR VOLUME 97.2 fl (80.0-96.0); PLATELET COUNT, AUTOMATED 157 10^3/uL (150-450); RED BLOOD COUNT 3.88 10^6/uL (4.30-6.10); WHITE BLOOD COUNT 4.2 10^3/uL (4.0-10.0)
[2024-06-04 07:04] LABS: ALBUMIN 2.8 G/DL (3.2-5.2); ALKALINE PHOSPHATASE 83 U/L (40-129); ALT/SGPT 18 U/L (7.0-40); AST/SGOT 21 U/L (<34); BILIRUBIN,TOTAL 0.3 MG/DL (0.3-1.2); BLOOD UREA NITROGEN 26 MG/DL (9-23); CALCIUM LEVEL 8.2 MG/DL (8.3-10.6); CARBON DIOXIDE LEVEL 30 MMOL/L (20-31); CHLORIDE LEVEL 102 MMOL/L (98-107); CREATININE FOR GFR 1.04 MG/DL (0.70-1.30); GLOMERULAR FILTRATION RATE > 60.0 (>35); GLUCOSE, FASTING 119 MG/DL (74-106); POTASSIUM SERUM 4.8 MMOL/L (3.5-5.1); SODIUM LEVEL 139 MMOL/L (136-145); TOTAL PROTEIN 6.7 G/DL (5.7-8.2)
[2024-06-04] MEDS ORDERED: SPIRONOLACTONE 25 MG TAB PO SCH (09:00)
[2024-06-04] MEDS ORDERED: TORSEMIDE 10 MG TABLET PO SCH (09:00)
[2024-06-04] MEDS ORDERED: CARVedilol 6.25 MG TAB PO SCH (09:00)
[2024-06-04] MEDS ORDERED: LOSARTAN 25 MG TAB PO SCH (09:00)
[2024-06-04 09:16] VITALS: BP 132/70; TEMP 97.2; O2SAT 93
[2024-06-04] MEDS: TORSEMIDE 10 MG TABLET PO SCH (09:18)
[2024-06-04] MEDS: CARVedilol 6.25 MG TAB PO SCH (09:18)
[2024-06-04] MEDS: PANTOPRAZOLE 40MG TAB (PROTONIX) PO SCH (09:19)
[2024-06-04] MEDS: ROSUVASTATIN 10 MG TAB (CRESTOR) PO SCH (09:19)
[2024-06-04] MEDS: predniSONE 20 MG TAB PO SCH (09:19)
[2024-06-04] MEDS: MAGNESIUM OXIDE 400MG TAB (MAG-OX) PO SCH (09:19)
[2024-06-04] MEDS: SPIRONOLACTONE 25 MG TAB PO SCH (09:20)
[2024-06-04] MEDS: LOSARTAN 25 MG TAB PO SCH (09:20)
[2024-06-04 12:10] VITALS: BP 112/62; TEMP 97.5; O2SAT 92
[2024-06-04 20:17] VITALS: BP 112/62; TEMP 97.5; O2SAT 93
[2024-06-04] MEDS: SYMBICORT 160/4.5MCG INHALER 6GM INH SCH (20:45)
[2024-06-04 20:47] VITALS: O2SAT 96
[2024-06-05 04:14] VITALS: BP 114/66; TEMP 97.2; O2SAT 95
[2024-06-05 05:20] LABS: INR 1.21; PROTHROMBIN TIME 15.6 SECONDS (12.5-14.5)
[2024-06-05] MEDS: TIOTROPIUM INHALER/CAPSULE (SPIRIVA) INH SCH (07:34)
[2024-06-05 08:00] VITALS: BP 112/66; TEMP 97.2; O2SAT 88
[2024-06-05] MEDS ORDERED: propofoL 200 MG/20 ML VIAL As Ordered ONE (08:40)
[2024-06-05] MEDS ORDERED: fentaNYL 100 MCG/2 ML INJECTION As Ordered ONE (08:40)
[2024-06-05] MEDS ORDERED: ROCURONIUM BROMIDE 50MG/5ML VIAL As Ordered ONE (08:40)
[2024-06-05] MEDS ORDERED: LIDOCAINE 2% 100MG/5ML SDV (FOR ANES.) As Ordered ONE (08:40)
[2024-06-05] MEDS ORDERED: MIDAZOLAM INJ 2MG/2ML VIAL As Ordered ONE (08:40)
[2024-06-05] MEDS: LIDOCAINE 2% MDV 20ML VIAL As Ordered ONE (08:51)
[2024-06-05] MEDS: EPINEPHrine 1MG/10ML SYRINGE 1.5IN As Ordered ONE (08:51)
[2024-06-05] MEDS ORDERED: NYSTATIN 100,000 UNITS/GM TOPICAL PWD 15GM TOP PRN (09:05)
[2024-06-05] MEDS: CETACAINE SPRAY 5GM As Ordered ONE (09:32)
[2024-06-05] MEDS ORDERED: ONDANSETRON 4MG 2ML VIAL As Ordered ONE (09:35)
[2024-06-05] MEDS ORDERED: ePHEDrine SULFATE 25 MG/5 ML(5MG/ML) SYRINGE As Ordered ONE (09:35)
[2024-06-05] MEDS ORDERED: PHENYLephrine 500MCG 5ML (100MCG/ML) SYRINGE As Ordered ONE (09:35)
[2024-06-05] MEDS: THROMBIN 5,000 UNITS VIAL As Ordered ONE (09:45)
[2024-06-05] MEDS ORDERED: SUGAMMADEX SODIUM 500 MG/5 ML VIAL (BRIDION) As Ordered ONE (09:46)
[2024-06-05] MEDS ORDERED: ONDANSETRON 4MG 2ML VIAL IV PRN (10:05)
[2024-06-05] MEDS: LEVALBUTEROL 1.25MG 0.5ML CONCENTRATE NEB INH ONE (11:01)
[2024-06-05 19:47] VITALS: BP 113/65; TEMP 97.5; O2SAT 93
[2024-06-05] MEDS: CEPACOL LOZENGE PO PRN (21:16)
[2024-06-05] MEDS: ACETAMINOPHEN 325 MG TAB PO PRN (21:17)
[2024-06-06 04:34] VITALS: BP 132/75; TEMP 97.3; O2SAT 96
[2024-06-06 08:31] VITALS: BP 105/57
[2024-06-06] MEDS: FLUBLOK(EGGFREE) TRIVAL(24-25) VACCINE PF 0.5ML SYRINGE 18YRS & OLDER IM.IMMUN ONE (08:53)
[2024-06-06] MEDS ORDERED: PRED10TA2 PO (09:45)
[2024-06-06] MEDS ORDERED: CEFD1CAP9 PO (09:45)
[2024-06-06] MEDS ORDERED: DOXY100T27 PO (09:45)
[2024-06-06] MEDS ORDERED: VENTAER INH (09:46)
[2024-06-06 12:00] VITALS: BP 133/70; TEMP 97.5; O2SAT 95
== END 2024-06-06 14:02 | disposition home or self-care (01) | DRG 190 ==
LOC: M ED 17:10 → EDBD 17:10 → M ED INP 22:04 → M MSPAV 06-04 00:40
PROVIDERS: ADMIT Family Medicine; ATTEND Internal Medicine
PROC: 0B9D8ZX Drainage of Right Middle Lung Lobe, Via Natural or Artificial Opening Endoscopic, Diagnostic (ICD-10-PCS; principal; 2024-06-05 08:30)
DX: J44.1 Chronic obstructive pulmonary disease with (acute) exacerbation (principal); J15.9 Unspecified bacterial pneumonia; J21.1 Acute bronchiolitis due to human metapneumovirus; J96.11 Chronic respiratory failure with hypoxia; E78.5 Hyperlipidemia, unspecified; J44.0 Chronic obstructive pulmonary disease with (acute) lower respiratory infection; K21.9 Gastro-esophageal reflux disease without esophagitis; I10 Essential (primary) hypertension; I48.91 Unspecified atrial fibrillation; Z95.0 Presence of cardiac pacemaker; Z79.899 Other long term (current) drug therapy; G47.33 Obstructive sleep apnea (adult) (pediatric)

== ENCOUNTER 2024-08-05 09:37 | Inpatient (IN) | payer MEDICARE, MEDICAID ==
[~2024-08-05] VITALS: Ht 177.8 cm; Wt 119.2 kg
[~2024-08-05 09:37] MED LIST changes: +BUDE10.7 INH; +CEFD1CAP9 PO; +DOXY100T27 PO; +MAGN400T2 PO
[2024-08-05 10:35] LABS: BASO % 0.6 % (0.0-1.0); EOS # 0.1 10^3/uL (0.0-0.5); HEMATOCRIT 34.7 % (42.0-52.0); HEMOGLOBIN 10.9 g/dl (13.5-17.5); LYMPH # 0.8 10^3/uL (1.5-5.0); LYMPH % 11.9 % (24.0-44.0); MEAN CORPUSCULAR HEMOGLOBIN 31.2 pg (27.0-33.0); MEAN CORPUSCULAR HGB CONC 31.4 g/dl (32.0-36.5); MEAN CORPUSCULAR VOLUME 99.4 fl (80.0-96.0); MONO # 0.7 10^3/uL (0.0-0.8); MONO % 10.2 % (2.0-8.0); NEUTROPHILS # 5.1 10^3/uL (1.5-8.5); NEUTROPHILS % 74.9 % (36.0-66.0); PLATELET COUNT, AUTOMATED 187 10^3/uL (150-450); RED BLOOD COUNT 3.49 10^6/uL (4.30-6.10); WHITE BLOOD COUNT 6.9 10^3/uL (4.0-10.0)
[2024-08-05 10:42] LABS: ABG BASE EXCESS 4.7 (-2.0-2.0); ABG HCO3 30.6 MMOL/L (22.0-26.0); ABG O2 SATURATION 94.4 % (95.0-99.0); ABG PARTIAL PRESSURE CO2 51.4 mmHg (35.0-45.0); ABG PARTIAL PRESSURE O2 75.6 mmHg (75.0-100.0); ABG STANDARD HCO3 28.7 MMOL/L. (22.0-26.0); ABG TOTAL CO2 32.2 MMOL/L (23.0-31.0); ABG pH (ARTERIAL) 7.393 UNITS (7.350-7.450)
[2024-08-05 11:03] LABS: CPK CREATINE PHOSPHOKINASE 52 U/L (46-171)
[2024-08-05 11:04] LABS: ALKALINE PHOSPHATASE 83 U/L (40-129); ALT/SGPT 12 U/L (7.0-40); AST/SGOT 12 U/L (<34); BILIRUBIN,DIRECT 0.2 MG/DL (<0.4); BILIRUBIN,TOTAL 0.6 MG/DL (0.3-1.2); BLOOD UREA NITROGEN 21 MG/DL (9-23); CALCIUM LEVEL 8.3 MG/DL (8.3-10.6); CARBON DIOXIDE LEVEL 33 MMOL/L (20-31); CHLORIDE LEVEL 102 MMOL/L (98-107); CK-MB VALUE MASS < 1.0 NG/ML (<3.6); CREATININE FOR GFR 1.07 MG/DL (0.70-1.30); GLOMERULAR FILTRATION RATE > 60.0 (>35); GLUCOSE, FASTING 89 MG/DL (74-106); MB/CK RELATIVE INDEX 1.92 (< OR =4); POTASSIUM SERUM 4.7 MMOL/L (3.5-5.1); SODIUM LEVEL 139 MMOL/L (136-145); TOTAL PROTEIN 6.4 G/DL (5.7-8.2)
[2024-08-05 11:06] LABS: THYROXINE (T4) 6.9 UG/DL (4.5-10.9)
[2024-08-05] MEDS: LevoFLOXacin IV 750 MG in IV 1 EA IV ONE (11:22)
[2024-08-05] MEDS: methylPREDNISolone 125MG 2ML VIAL IV ONE (11:22)
[2024-08-05] MEDS: IPRATROPIUM 0.5MG/ALBUTEROL 2.5MG INH SOL UD 3ML (DUONEB) NEB PRN (11:51)
[2024-08-05] MEDS ORDERED: ISOVUE-370 76% 100ML VIAL As Ordered ONE (12:38)
[2024-08-05] MEDS: PIPERACILLIN/TAZOBACTAM SOD 4.5 GM in DEXTROSE 5% (D5W) ADV/MINI-BAG 50 ML IV ONE (13:01)
[2024-08-05 13:59] LABS: CK-MB VALUE MASS < 1.0 NG/ML (<3.6)
[2024-08-05 14:01] LABS: CPK CREATINE PHOSPHOKINASE 51 U/L (46-171); MB/CK RELATIVE INDEX 1.96 (< OR =4)
[2024-08-05] MEDS: SODIUM CHLORIDE HYPERTONIC 3% 4ML NEB SOL INH SCH (16:14)
[2024-08-05] MEDS: ALBUTEROL SULFATE 2.5MG/0.5ML INH NEB SOLN NEB SCH (16:14)
[2024-08-05] MEDS: AZITHROMYCIN INJ 500 MG, VIAL MATE ADAPTER 1 EACH in NS 250 ML IV SCH (16:21)
[2024-08-05] MEDS: FUROSEMIDE 40MG/4ML VIAL IV ONE (16:24)
[2024-08-05] MEDS ORDERED: HOME MED LIST COMPLETE! XX SCH (16:50)
[2024-08-05 17:00] VITALS: BP 123/79; TEMP 98.1; O2SAT 94
[2024-08-05] MEDS: FUROSEMIDE 40MG/4ML VIAL IV SCH (17:24)
[2024-08-05] MEDS: BUDESONIDE 0.5 MG/2 ML INHALATION SUSPENSION NEB SCH (19:23)
[2024-08-05 19:26] VITALS: O2SAT 97
[2024-08-05 19:36] VITALS: BP 122/78; TEMP 98.2; O2SAT 95
[2024-08-05] MEDS ORDERED: IPRATROPIUM 0.5MG/ALBUTEROL 2.5MG INH SOL UD 3ML (DUONEB) NEB SCH (20:00)
[2024-08-05] MEDS ORDERED: GLYCOPYRROLATE INJ 0.2 MG/ML 2 ML VIAL NEB SCH (20:00)
[2024-08-05] MEDS ORDERED: FORMOTEROL FUMARATE 20 MCG/2 ML INHALATION SOLUTION (PERFOROMIST) INH SCH (20:00)
[2024-08-05] MEDS: methylPREDNISolone 125MG 2ML VIAL IV SCH (20:57)
[2024-08-05] MEDS ORDERED: ACETAMINOPHEN 500 MG TAB PO PRN (21:45)
[2024-08-05] MEDS ORDERED: ACETAMINOPHEN 325 MG TAB PO PRN (21:45)
[2024-08-05] MEDS: LIDOCAINE 5% (LIDODERM) PATCH TD PRN (22:18)
[2024-08-06 03:34] VITALS: BP 108/58; TEMP 97.9; O2SAT 90
[2024-08-06 05:27] LABS: HEMOGLOBIN 11.8 g/dl (13.5-17.5); MEAN CORPUSCULAR HEMOGLOBIN 30.7 pg (27.0-33.0); MEAN CORPUSCULAR HGB CONC 31.9 g/dl (32.0-36.5); MEAN CORPUSCULAR VOLUME 96.4 fl (80.0-96.0); PLATELET COUNT, AUTOMATED 197 10^3/uL (150-450); RED BLOOD COUNT 3.84 10^6/uL (4.30-6.10); WHITE BLOOD COUNT 9.1 10^3/uL (4.0-10.0)
[2024-08-06 05:55] LABS: BLOOD UREA NITROGEN 25 MG/DL (9-23); CALCIUM LEVEL 8.5 MG/DL (8.3-10.6); CARBON DIOXIDE LEVEL 31 MMOL/L (20-31); CHLORIDE LEVEL 100 MMOL/L (98-107); CREATININE FOR GFR 1.19 MG/DL (0.70-1.30); GLOMERULAR FILTRATION RATE > 60.0 (>35); GLUCOSE, FASTING 185 MG/DL (74-106); POTASSIUM SERUM 3.9 MMOL/L (3.5-5.1); SODIUM LEVEL 142 MMOL/L (136-145)
[2024-08-06 08:17] VITALS: O2SAT 91
[2024-08-06 12:00] VITALS: BP 111/58; TEMP 97.3; O2SAT 98
[2024-08-06 13:33] LABS: MAGNESIUM LEVEL 1.6 MG/DL (1.8-2.4)
[2024-08-06] MEDS: AZITHROMYCIN 250MG TABLET PO SCH (14:37)
[2024-08-06] MEDS: RIVAROXABAN 20MG TAB (XARELTO) PO SCH (17:16)
[2024-08-06 17:24] VITALS: BP 117/60
[2024-08-06] MEDS: MAG SULF 1GM/100ML (MAG RUN) 1 GM in IV 1 EA IV SCH (17:48)
[2024-08-06] MEDS: MAGNESIUM OXIDE 400MG TAB (MAG-OX) PO SCH (20:46)
[2024-08-06] MEDS: CARVedilol 6.25 MG TAB PO SCH (20:46)
[2024-08-06 22:13] VITALS: BP 116/59; TEMP 97.7; O2SAT 90
[2024-08-07 04:27] VITALS: BP 150/78; TEMP 98.1; O2SAT 92
[2024-08-07 06:19] LABS: HEMATOCRIT 38.9 % (42.0-52.0); HEMOGLOBIN 12.3 g/dl (13.5-17.5); MEAN CORPUSCULAR HEMOGLOBIN 31.5 pg (27.0-33.0); MEAN CORPUSCULAR HGB CONC 31.6 g/dl (32.0-36.5); MEAN CORPUSCULAR VOLUME 99.5 fl (80.0-96.0); PLATELET COUNT, AUTOMATED 189 10^3/uL (150-450); RED BLOOD COUNT 3.91 10^6/uL (4.30-6.10); WHITE BLOOD COUNT 15.8 10^3/uL (4.0-10.0)
[2024-08-07 06:40] LABS: BLOOD UREA NITROGEN 34 MG/DL (9-23); CALCIUM LEVEL 9.2 MG/DL (8.3-10.6); CARBON DIOXIDE LEVEL 30 MMOL/L (20-31); CHLORIDE LEVEL 100 MMOL/L (98-107); CREATININE FOR GFR 0.98 MG/DL (0.70-1.30); GLOMERULAR FILTRATION RATE > 60.0 (>35); GLUCOSE, FASTING 159 MG/DL (74-106); MAGNESIUM LEVEL 2.4 MG/DL (1.8-2.4); POTASSIUM SERUM 4.5 MMOL/L (3.5-5.1); SODIUM LEVEL 139 MMOL/L (136-145)
[2024-08-07] MEDS: PANTOPRAZOLE 40MG TAB (PROTONIX) PO SCH (10:00)
[2024-08-07] MEDS: SPIRONOLACTONE 25 MG TAB PO SCH (10:01)
[2024-08-07] MEDS: ROSUVASTATIN 10 MG TAB (CRESTOR) PO SCH (10:01)
[2024-08-07] MEDS: LOSARTAN 25 MG TAB PO SCH (10:03)
[2024-08-07 12:00] VITALS: BP 122/59; TEMP 98.1; O2SAT 91
[2024-08-07 19:20] VITALS: O2SAT 96
[2024-08-07 20:13] VITALS: BP 122/60; TEMP 97.7; O2SAT 94
[2024-08-08 04:59] VITALS: BP 134/76; TEMP 98.1; O2SAT 93
[2024-08-08 05:40] LABS: BLOOD UREA NITROGEN 33 MG/DL (9-23); CALCIUM LEVEL 8.5 MG/DL (8.3-10.6); CARBON DIOXIDE LEVEL 35 MMOL/L (20-31); CHLORIDE LEVEL 101 MMOL/L (98-107); GLOMERULAR FILTRATION RATE > 60.0 (>35); GLUCOSE, FASTING 152 MG/DL (74-106); MAGNESIUM LEVEL 2.3 MG/DL (1.8-2.4); POTASSIUM SERUM 4.8 MMOL/L (3.5-5.1); SODIUM LEVEL 143 MMOL/L (136-145)
[2024-08-08 07:13] VITALS: O2SAT 94
[2024-08-08 08:53] VITALS: BP 134/76
[2024-08-08] MEDS: TORSEMIDE 20 MG TAB PO SCH (08:53)
[2024-08-08] MEDS ORDERED: PRED10TA2 PO (10:16)
[2024-08-08] MEDS ORDERED: IPRA0.00 INH (10:16)
[2024-08-08] MEDS ORDERED: PRED20TA PO (10:16)
[2024-08-08] MEDS ORDERED: AZIT500T5 PO (10:16)
[2024-08-08] MEDS ORDERED: TORS20TA2 PO (10:16)
[2024-08-08 12:00] VITALS: BP 118/66; TEMP 98.1; O2SAT 98
[2024-08-09] MEDS ORDERED: AZITHROMYCIN 250MG TABLET PO SCH (09:00)
== END 2024-08-08 14:05 | disposition home health service (06) | DRG 193 ==
LOC: M ED 09:37 → EDBD 09:37 → M ED INP 14:54 → M MSPAV 17:00
PROVIDERS: ADMIT Student in an Organized Health Care Education/Training Program; ATTEND Student in an Organized Health Care Education/Training Program
DX: J12.9 Viral pneumonia, unspecified (principal); I50.33 Acute on chronic diastolic (congestive) heart failure; J96.21 Acute and chronic respiratory failure with hypoxia; J44.1 Chronic obstructive pulmonary disease with (acute) exacerbation; K21.9 Gastro-esophageal reflux disease without esophagitis; E66.9 Obesity, unspecified; I11.0 Hypertensive heart disease with heart failure; I27.81 Cor pulmonale (chronic); J44.9 Chronic obstructive pulmonary disease, unspecified; I27.20 Pulmonary hypertension, unspecified; I25.10 Atherosclerotic heart disease of native coronary artery without angina pectoris; E78.5 Hyperlipidemia, unspecified; G47.33 Obstructive sleep apnea (adult) (pediatric); I48.0 Paroxysmal atrial fibrillation; Z95.0 Presence of cardiac pacemaker; Z87.891 Personal history of nicotine dependence; Z79.899 Other long term (current) drug therapy; Z79.52 Long term (current) use of systemic steroids; Z91.199 Patient's noncompliance with other medical treatment and regimen due to unspecified reason; Z79.01 Long term (current) use of anticoagulants; N40.0 Benign prostatic hyperplasia without lower urinary tract symptoms; Z99.81 Dependence on supplemental oxygen

== ENCOUNTER 2024-08-24 09:01 | Inpatient (IN) | payer MEDICARE, MEDICAID ==
[~2024-08-24] VITALS: Ht 177.8 cm; Wt 118.3 kg
[~2024-08-24 09:01] MED LIST changes: +AZIT500T5 PO; +BUDESONIDE 0.5 MG/2 ML INHALATION SUSPENSION NEB SCH; +IPRA0.00 INH; +TORS20TA2 PO
[2024-08-24 09:37] LABS: VENOUS BASE EXCESS 6.3 (-2.0-2.0); VENOUS HCO3 35.4 MMOL/L (23.0-27.0); VENOUS O2 SATURATION 63.1 % (60.0-80.0); VENOUS PARTIAL PRESSURE CO2 72.5 mmHg (38.0-50.0); VENOUS PH 7.307 UNITS (7.330-7.430); VENOUS STANDARD HCO3 29.3 MMOL/L; VENOUS TOTAL CO2 37.7 MMOL/L (24.0-28.0)
[2024-08-24 09:38] LABS: BASO % 0.2 % (0.0-1.0); EOS # 0.1 10^3/uL (0.0-0.5); EOS % 1.1 % (0.0-3.0); HEMATOCRIT 42.4 % (42.0-52.0); HEMOGLOBIN 13.4 g/dl (13.5-17.5); LYMPH # 0.8 10^3/uL (1.5-5.0); LYMPH % 7.1 % (24.0-44.0); MEAN CORPUSCULAR HEMOGLOBIN 31.3 pg (27.0-33.0); MEAN CORPUSCULAR HGB CONC 31.6 g/dl (32.0-36.5); MEAN CORPUSCULAR VOLUME 99.1 fl (80.0-96.0); MONO # 0.7 10^3/uL (0.0-0.8); MONO % 6.2 % (2.0-8.0); NEUTROPHILS # 9.6 10^3/uL (1.5-8.5); NEUTROPHILS % 84.1 % (36.0-66.0); PLATELET COUNT, AUTOMATED 164 10^3/uL (150-450); RED BLOOD COUNT 4.28 10^6/uL (4.30-6.10); WHITE BLOOD COUNT 11.4 10^3/uL (4.0-10.0)
[2024-08-24] MEDS ORDERED: ISOVUE-370 76% 100ML VIAL As Ordered ONE (09:46)
[2024-08-24 10:09] LABS: ALBUMIN 3.3 G/DL (3.2-5.2); ALKALINE PHOSPHATASE 77 U/L (40-129); ALT/SGPT 24 U/L (7.0-40); AST/SGOT 30 U/L (<34); BILIRUBIN,DIRECT 0.2 MG/DL (<0.4); BILIRUBIN,TOTAL 0.6 MG/DL (0.3-1.2); BLOOD UREA NITROGEN 34 MG/DL (9-23); CALCIUM LEVEL 7.9 MG/DL (8.3-10.6); CARBON DIOXIDE LEVEL 33 MMOL/L (20-31); CHLORIDE LEVEL 96 MMOL/L (98-107); CK-MB VALUE MASS < 1.0 NG/ML (<3.6); CREATININE FOR GFR 1.11 MG/DL (0.70-1.30); GLOMERULAR FILTRATION RATE > 60.0 (>35); GLUCOSE, FASTING 110 MG/DL (74-106); POTASSIUM SERUM 5.5 MMOL/L (3.5-5.1); SODIUM LEVEL 136 MMOL/L (136-145); TOTAL PROTEIN 6.2 G/DL (5.7-8.2)
[2024-08-24] MEDS: IPRATROPIUM 0.5MG/ALBUTEROL 2.5MG INH SOL UD 3ML NEB PRN (10:10)
[2024-08-24 10:13] LABS: CPK CREATINE PHOSPHOKINASE 54 U/L (46-171); MB/CK RELATIVE INDEX 1.85 (< OR =4)
[2024-08-24 10:31] LABS: ABG PARTIAL PRESSURE CO2 44.5 mmHg (35.0-45.0); ABG PARTIAL PRESSURE O2 79.6 mmHg (75.0-100.0); ABG STANDARD HCO3 27.1 MMOL/L. (22.0-26.0); ABG TOTAL CO2 29.4 MMOL/L (23.0-31.0); ABG pH (ARTERIAL) 7.417 UNITS (7.350-7.450)
[2024-08-24 11:23] LABS: BASO % 0.2 % (0.0-1.0); EOS # 0.1 10^3/uL (0.0-0.5); EOS % 0.4 % (0.0-3.0); HEMATOCRIT 41.1 % (42.0-52.0); HEMOGLOBIN 12.9 g/dl (13.5-17.5); LYMPH # 0.8 10^3/uL (1.5-5.0); LYMPH % 7.2 % (24.0-44.0); MEAN CORPUSCULAR HEMOGLOBIN 31.3 pg (27.0-33.0); MEAN CORPUSCULAR HGB CONC 31.4 g/dl (32.0-36.5); MEAN CORPUSCULAR VOLUME 99.8 fl (80.0-96.0); MONO # 0.4 10^3/uL (0.0-0.8); MONO % 3.6 % (2.0-8.0); NEUTROPHILS # 10.1 10^3/uL (1.5-8.5); NEUTROPHILS % 87.5 % (36.0-66.0); PLATELET COUNT, AUTOMATED 163 10^3/uL (150-450); RED BLOOD COUNT 4.12 10^6/uL (4.30-6.10); WHITE BLOOD COUNT 11.6 10^3/uL (4.0-10.0)
[2024-08-24 11:55] LABS: BLOOD UREA NITROGEN 34 MG/DL (9-23); CALCIUM LEVEL 7.8 MG/DL (8.3-10.6); CARBON DIOXIDE LEVEL 34 MMOL/L (20-31); CHLORIDE LEVEL 95 MMOL/L (98-107); CK-MB VALUE MASS < 1.0 NG/ML (<3.6); CREATININE FOR GFR 1.12 MG/DL (0.70-1.30); GLOMERULAR FILTRATION RATE > 60.0 (>35); GLUCOSE, FASTING 126 MG/DL (74-106); POTASSIUM SERUM 5.4 MMOL/L (3.5-5.1); SODIUM LEVEL 137 MMOL/L (136-145)
[2024-08-24 11:59] LABS: CPK CREATINE PHOSPHOKINASE 48 U/L (46-171); MB/CK RELATIVE INDEX 2.08 (< OR =4)
[2024-08-24] MEDS ORDERED: IPRATROPIUM 0.5MG/ALBUTEROL 2.5MG INH SOL UD 3ML NEB PRN (12:20)
[2024-08-24] MEDS: COMBIVENT RESPIMAT 100-20MCG INHALER 4GM INH SCH (12:58)
[2024-08-24] MEDS: FUROSEMIDE 40MG/4ML VIAL IV ONE (14:13)
[2024-08-24] MEDS: methylPREDNISolone 125MG 2ML VIAL IV SCH (14:13)
[2024-08-24] MEDS: PATIROMER SORBITEX CALCIUM 8.4 GM POWDER PACKET (VELTASSA) PO ONE (14:21)
[2024-08-24] MEDS ORDERED: IPRA0.00 INH (15:02)
[2024-08-24] MEDS ORDERED: ALBU2.5V10 INH (15:02)
[2024-08-24] MEDS ORDERED: TORS20TA2 PO (15:02)
[2024-08-24] MEDS ORDERED: AZIT500T5 PO (15:02)
[2024-08-24] MEDS ORDERED: BUDE0.5S6 INH (15:02)
[2024-08-24] MEDS ORDERED: BISO5TAB14 PO (15:02)
[2024-08-24] MEDS ORDERED: HOME MED LIST COMPLETE! XX SCH (15:05)
[2024-08-24] MEDS: ALBUTEROL SULFATE 2.5MG/0.5ML INH CONCENTRATE NEB SOLN NEB SCH (16:00)
[2024-08-24] MEDS: SODIUM CHLORIDE HYPERTONIC 3% 4ML NEB SOL INH SCH (16:00)
[2024-08-24] MEDS ORDERED: IPRATROPIUM 0.5MG/ALBUTEROL 2.5MG INH SOL UD 3ML NEB SCH (16:00)
[2024-08-24 18:24] LABS: PROCALCITONIN 0.09 ng/ml
[2024-08-24] MEDS: LevoFLOXacin 750 MG TABLET PO SCH (19:37)
[2024-08-24] MEDS ORDERED: BUDESONIDE 0.5 MG/2 ML INHALATION SUSPENSION NEB SCH (20:00)
[2024-08-24] MEDS ORDERED: FORMOTEROL FUMARATE 20 MCG/2 ML INHALATION SOLUTION (PERFOROMIST) INH SCH (20:00)
[2024-08-24] MEDS ORDERED: GLYCOPYRROLATE INJ 0.2 MG/ML 2 ML VIAL NEB SCH (20:00)
[2024-08-24] MEDS: SYMBICORT 160/4.5MCG INHALER 6GM INH SCH (20:27)
[2024-08-24] MEDS: CARVedilol 6.25 MG TAB PO SCH (21:12)
[2024-08-24] MEDS: MAGNESIUM OXIDE 400MG TAB (MAG-OX) PO SCH (21:12)
[2024-08-24] MEDS: methylPREDNISolone 40MG 1ML VIAL IV SCH (21:50)
[2024-08-24 22:05] VITALS: BP 147/84; TEMP 97.3; O2SAT 99
[2024-08-24 23:00] VITALS: O2SAT 96
[2024-08-25] VITALS (23 sets, daily range): BP systolic 120–145; BP diastolic 62–71; TEMP 97.2–98.2; O2SAT 90–100
[2024-08-25 06:33] LABS: BASO % 0.1 % (0.0-1.0); HEMATOCRIT 39.5 % (42.0-52.0); HEMOGLOBIN 12.7 g/dl (13.5-17.5); LYMPH # 0.8 10^3/uL (1.5-5.0); LYMPH % 6.5 % (24.0-44.0); MEAN CORPUSCULAR HGB CONC 32.2 g/dl (32.0-36.5); MEAN CORPUSCULAR VOLUME 96.3 fl (80.0-96.0); MONO # 0.4 10^3/uL (0.0-0.8); MONO % 3.3 % (2.0-8.0); NEUTROPHILS # 10.5 10^3/uL (1.5-8.5); NEUTROPHILS % 89.2 % (36.0-66.0); PLATELET COUNT, AUTOMATED 158 10^3/uL (150-450); WHITE BLOOD COUNT 11.7 10^3/uL (4.0-10.0)
[2024-08-25 06:52] LABS: ALBUMIN 2.8 G/DL (3.2-5.2); ALKALINE PHOSPHATASE 74 U/L (40-129); ALT/SGPT 19 U/L (7.0-40); AST/SGOT 13 U/L (<34); BILIRUBIN,TOTAL 0.5 MG/DL (0.3-1.2); BLOOD UREA NITROGEN 45 MG/DL (9-23); CALCIUM LEVEL 8.6 MG/DL (8.3-10.6); CARBON DIOXIDE LEVEL 32 MMOL/L (20-31); CHLORIDE LEVEL 98 MMOL/L (98-107); CREATININE FOR GFR 1.16 MG/DL (0.70-1.30); GLOMERULAR FILTRATION RATE > 60.0 (>35); GLUCOSE, FASTING 135 MG/DL (74-106); POTASSIUM SERUM 4.7 MMOL/L (3.5-5.1); SODIUM LEVEL 137 MMOL/L (136-145); TOTAL PROTEIN 5.9 G/DL (5.7-8.2)
[2024-08-25] MEDS ORDERED: TIOTROPIUM BROM 2.5MCG/ACTUATION 4GM INH IH SCH (08:00)
[2024-08-25] MEDS ORDERED: LOSARTAN 25 MG TAB PO SCH (09:00)
[2024-08-25] MEDS ORDERED: AZITHROMYCIN 250MG TABLET PO SCH (09:00)
[2024-08-25] MEDS: RIVAROXABAN 20MG TAB (XARELTO) PO SCH (09:25)
[2024-08-25] MEDS: PANTOPRAZOLE 40MG TAB (PROTONIX) PO SCH (09:25)
[2024-08-25] MEDS: ROSUVASTATIN 10 MG TAB (CRESTOR) PO SCH (09:25)
[2024-08-25] MEDS: SPIRONOLACTONE 25 MG TAB PO SCH (09:25)
[2024-08-25] MEDS: bisoproloL fumarate 5 MG TAB PO SCH (09:26)
[2024-08-25] MEDS: TORSEMIDE 20 MG TAB PO SCH (09:26)
[2024-08-25] MEDS: TIOTROPIUM BROM 2.5MCG/ACTUATION 4GM INH IH SCH (09:56)
[2024-08-25] MEDS: guaiFENesin ER TABLET 600 MG TAB PO SCH (12:42)
[2024-08-25] MEDS: REMDESIVIR 200 MG in NS 250 ML IV ONE (12:43)
[2024-08-26 04:19] VITALS: BP 131/75; TEMP 98.5; O2SAT 98
[2024-08-26 05:24] LABS: BASO % 0.1 % (0.0-1.0); HEMATOCRIT 39.6 % (42.0-52.0); HEMOGLOBIN 12.7 g/dl (13.5-17.5); LYMPH # 0.6 10^3/uL (1.5-5.0); LYMPH % 4.1 % (24.0-44.0); MEAN CORPUSCULAR HEMOGLOBIN 31.3 pg (27.0-33.0); MEAN CORPUSCULAR HGB CONC 32.1 g/dl (32.0-36.5); MEAN CORPUSCULAR VOLUME 97.5 fl (80.0-96.0); MONO # 0.4 10^3/uL (0.0-0.8); NEUTROPHILS # 13.4 10^3/uL (1.5-8.5); NEUTROPHILS % 91.8 % (36.0-66.0); PLATELET COUNT, AUTOMATED 169 10^3/uL (150-450); RED BLOOD COUNT 4.06 10^6/uL (4.30-6.10); WHITE BLOOD COUNT 14.6 10^3/uL (4.0-10.0)
[2024-08-26 06:02] LABS: CALCIUM LEVEL 8.2 MG/DL (8.3-10.6); CREATININE FOR GFR 1.26 MG/DL (0.70-1.30); GLOMERULAR FILTRATION RATE 56.6 (>35); POTASSIUM SERUM 4.7 MMOL/L (3.5-5.1)
[2024-08-26 08:27] VITALS: BP 155/81; TEMP 97.9; O2SAT 96
[2024-08-26] MEDS: GLYCOPYRROLATE INJ 0.2 MG/ML 2 ML VIAL NEB SCH (09:25)
[2024-08-26 12:07] VITALS: BP 147/64; TEMP 98; O2SAT 96
[2024-08-26] MEDS: SODIUM CHLORIDE HYPERTONIC 3% 4ML NEB SOL INH SCH (13:53)
[2024-08-26] MEDS: ALBUTEROL SULFATE 2.5MG/0.5ML INH CONCENTRATE NEB SOLN NEB SCH (13:54)
[2024-08-26] MEDS: REMDESIVIR 100 MG in NS 100 ML IV SCH (16:09)
[2024-08-26 16:31] VITALS: BP 127/75; TEMP 97.8; O2SAT 96
[2024-08-26] MEDS: methylPREDNISolone 40MG 1ML VIAL IV SCH (17:15)
[2024-08-26] MEDS: FUROSEMIDE 40MG/4ML VIAL IV SCH (17:15)
[2024-08-26 19:19] VITALS: BP 103/56; TEMP 97.4; O2SAT 95
[2024-08-26] MEDS: FORMOTEROL FUMARATE 20 MCG/2 ML INHALATION SOLUTION (PERFOROMIST) INH SCH (20:22)
[2024-08-26] MEDS: BUDESONIDE 0.5 MG/2 ML INHALATION SUSPENSION NEB SCH (20:22)
[2024-08-27 04:23] VITALS: BP 119/70; TEMP 97.6; O2SAT 97
[2024-08-27 06:28] LABS: BASO % 0.1 % (0.0-1.0); HEMATOCRIT 39.7 % (42.0-52.0); HEMOGLOBIN 12.3 g/dl (13.5-17.5); LYMPH # 0.6 10^3/uL (1.5-5.0); LYMPH % 4.8 % (24.0-44.0); MEAN CORPUSCULAR HEMOGLOBIN 30.9 pg (27.0-33.0); MEAN CORPUSCULAR VOLUME 99.7 fl (80.0-96.0); MONO # 0.5 10^3/uL (0.0-0.8); MONO % 4.1 % (2.0-8.0); NEUTROPHILS # 11.8 10^3/uL (1.5-8.5); NEUTROPHILS % 90.2 % (36.0-66.0); PLATELET COUNT, AUTOMATED 158 10^3/uL (150-450); RED BLOOD COUNT 3.98 10^6/uL (4.30-6.10); WHITE BLOOD COUNT 13.1 10^3/uL (4.0-10.0)
[2024-08-27 06:57] LABS: CALCIUM LEVEL 8.2 MG/DL (8.3-10.6); CREATININE FOR GFR 1.3 MG/DL (0.70-1.30); GLOMERULAR FILTRATION RATE 54.5 (>35); MAGNESIUM LEVEL 1.9 MG/DL (1.8-2.4); POTASSIUM SERUM 4.4 MMOL/L (3.5-5.1)
[2024-08-27 08:30] VITALS: TEMP 97.7; O2SAT 97
[2024-08-27 09:21] VITALS: BP 124/60; O2SAT 88
[2024-08-27] MEDS: TORSEMIDE 20 MG TAB PO SCH (09:25)
[2024-08-27 10:56] LABS: PROCALCITONIN 0.07 ng/ml
[2024-08-27 16:00] VITALS: BP 127/67; TEMP 97; O2SAT 96
[2024-08-27 19:26] VITALS: BP 116/59; TEMP 97.6; O2SAT 98
[2024-08-27] MEDS: ACETAMINOPHEN 325 MG TAB PO PRN (21:36)
[2024-08-28] VITALS: BP 116/59; TEMP 97.6; O2SAT 98
[2024-08-28 03:59] VITALS: BP 126/77; TEMP 97; O2SAT 96
[2024-08-28 04:00] VITALS: BP 126/77; TEMP 97; O2SAT 96
[2024-08-28 07:32] VITALS: BP 131/71; TEMP 97.6; O2SAT 94
[2024-08-28 08:49] LABS: BASO % 0.1 % (0.0-1.0); HEMATOCRIT 41.8 % (42.0-52.0); HEMOGLOBIN 13.2 g/dl (13.5-17.5); LYMPH # 0.4 10^3/uL (1.5-5.0); LYMPH % 4.4 % (24.0-44.0); MEAN CORPUSCULAR HEMOGLOBIN 31.5 pg (27.0-33.0); MEAN CORPUSCULAR HGB CONC 31.6 g/dl (32.0-36.5); MEAN CORPUSCULAR VOLUME 99.8 fl (80.0-96.0); MONO # 0.2 10^3/uL (0.0-0.8); MONO % 2.1 % (2.0-8.0); NEUTROPHILS # 9.3 10^3/uL (1.5-8.5); NEUTROPHILS % 92.5 % (36.0-66.0); PLATELET COUNT, AUTOMATED 167 10^3/uL (150-450); RED BLOOD COUNT 4.19 10^6/uL (4.30-6.10)
[2024-08-28 09:11] LABS: CALCIUM LEVEL 8.3 MG/DL (8.3-10.6); CREATININE FOR GFR 1.33 MG/DL (0.70-1.30); MAGNESIUM LEVEL 1.9 MG/DL (1.8-2.4); POTASSIUM SERUM 4.3 MMOL/L (3.5-5.1)
[2024-08-28] MEDS: NS 500 ML IV ONE (13:00)
[2024-08-28 16:00] VITALS: BP 128/74; TEMP 97.6; O2SAT 96
[2024-08-28] MEDS: LevoFLOXacin 750 MG TABLET PO ONE (18:09)
[2024-08-28 20:04] VITALS: BP 125/60; TEMP 97.7; O2SAT 95
[2024-08-29 03:29] VITALS: BP 136/75; TEMP 97; O2SAT 96
[2024-08-29 06:28] LABS: BASO % 0.2 % (0.0-1.0); HEMATOCRIT 39.6 % (42.0-52.0); HEMOGLOBIN 12.5 g/dl (13.5-17.5); LYMPH # 0.7 10^3/uL (1.5-5.0); LYMPH % 6.5 % (24.0-44.0); MEAN CORPUSCULAR HEMOGLOBIN 30.9 pg (27.0-33.0); MEAN CORPUSCULAR HGB CONC 31.6 g/dl (32.0-36.5); MONO # 0.6 10^3/uL (0.0-0.8); MONO % 5.4 % (2.0-8.0); NEUTROPHILS # 9.5 10^3/uL (1.5-8.5); NEUTROPHILS % 86.8 % (36.0-66.0); PLATELET COUNT, AUTOMATED 158 10^3/uL (150-450); RED BLOOD COUNT 4.04 10^6/uL (4.30-6.10); WHITE BLOOD COUNT 10.9 10^3/uL (4.0-10.0)
[2024-08-29 06:47] LABS: CALCIUM LEVEL 7.8 MG/DL (8.3-10.6); CREATININE FOR GFR 1.31 MG/DL (0.70-1.30)
[2024-08-29 08:08] VITALS: BP 137/84; TEMP 97.4; O2SAT 99
[2024-08-29] MEDS ORDERED: PRED10TA2 PO (08:47)
[2024-08-29] MEDS ORDERED: MUCI1TAB16 PO (08:47)
[2024-08-29] MEDS ORDERED: IPRA0.00 INH (08:55)
[2024-08-29] MEDS ORDERED: PRED20TA PO (08:55)
[2024-08-29 09:00] VITALS: BP 137/84
== END 2024-08-29 13:10 | disposition home or self-care (01) | DRG 177 ==
LOC: M ED 09:01 → EDBD 09:01 → M ED INP 12:13 → M PCU 22:05
PROVIDERS: ADMIT Internal Medicine; ATTEND Internal Medicine
DX: U07.1 COVID-19 (principal); J12.82 Pneumonia due to coronavirus disease 2019; I50.33 Acute on chronic diastolic (congestive) heart failure; J44.1 Chronic obstructive pulmonary disease with (acute) exacerbation; J96.10 Chronic respiratory failure, unspecified whether with hypoxia or hypercapnia; N17.9 Acute kidney failure, unspecified; J98.11 Atelectasis; I27.22 Pulmonary hypertension due to left heart disease; I48.0 Paroxysmal atrial fibrillation; E78.5 Hyperlipidemia, unspecified; I11.0 Hypertensive heart disease with heart failure; R91.1 Solitary pulmonary nodule; Z99.81 Dependence on supplemental oxygen; Z95.0 Presence of cardiac pacemaker; I49.5 Sick sinus syndrome; Z79.01 Long term (current) use of anticoagulants; I25.2 Old myocardial infarction; Z91.199 Patient's noncompliance with other medical treatment and regimen due to unspecified reason; Z87.891 Personal history of nicotine dependence; E87.5 Hyperkalemia; Z79.899 Other long term (current) drug therapy; G47.33 Obstructive sleep apnea (adult) (pediatric)

== ENCOUNTER → 2024-09-16 | Outpatient (REF) | payer MEDICARE, MEDICAID ==
[~2024-09-16] MED LIST changes: +ALBU2.5V10 INH; +BISO5TAB14 PO; +BUDE0.5S6 INH; -BUDESONIDE 0.5 MG/2 ML INHALATION SUSPENSION NEB SCH; +MUCI1TAB16 PO
== END ==
LOC: M LAB REF 12:11
PROVIDERS: ATTEND Internal Medicine
DX: I50.33 Acute on chronic diastolic (congestive) heart failure (principal); I48.21 Permanent atrial fibrillation; Z95.0 Presence of cardiac pacemaker

== ENCOUNTER → 2024-09-16 | Outpatient (CLI) | payer MEDICARE, MEDICAID | LOC: M WUC 12:36 | PROVIDERS: ATTEND Internal Medicine | DX: M47.814 Spondylosis without myelopathy or radiculopathy, thoracic region (principal); M85.88 Other specified disorders of bone density and structure, other site; I50.33 Acute on chronic diastolic (congestive) heart failure; I48.21 Permanent atrial fibrillation; Z95.0 Presence of cardiac pacemaker ==

== ENCOUNTER → 2025-02-08 | Outpatient (CLI) | payer MEDICARE, MEDICAID ==
[~2025-02-08] MED LIST changes: +LEVO75TAB PO; -PRAV20TA2 PO; +PRAV20TA78 PO; +SODI3NEB NEB; +TRAM50TA2 PO
== END ==
LOC: M CARPUL 08:33
PROVIDERS: ATTEND Registered Nurse
DX: I25.10 Atherosclerotic heart disease of native coronary artery without angina pectoris (principal); R94.31 Abnormal electrocardiogram [ECG] [EKG]
CPT/HCPCS: 78451; 93017; A9500

== ENCOUNTER → 2025-02-23 | Outpatient (CLI) | payer MEDICARE, MEDICAID | LOC: M WUC 10:29 | PROVIDERS: ATTEND Internal Medicine Pulmonary Disease | DX: J44.9 Chronic obstructive pulmonary disease, unspecified (principal); J90 Pleural effusion, not elsewhere classified; R91.8 Other nonspecific abnormal finding of lung field ==